=== PATIENT | female | born 1950 | race Caucasian/White ===

== ENCOUNTER 2017-12-06 05:23 | Day surgery (SDC) | payer OTHER, MEDICARE ==
[~2017-12-06] VITALS: Ht 165.1 cm; Wt 80.3 kg
--- NOTE | ~2017-12-06 | O ---
[facility] [place] [address] OPERATIVE REPORT Name: JENNIFER STAHL Room #: 150-4 [facility].#: [id number] Admission: 12/06/17 Attend Phys: Casey Armendariz MD Discharge: Date of : 46 Report #: [id number] THIS REPORT FOR: //name// CC: [facility] physician/PCP Joseluis Armendariz DATE OF SERVICE: 12/06/2017 PATIENT OF: Dr. Casey Armendariz and Dr. Joseluis Hassan. PREOPERATIVE DIAGNOSIS: Right lower quadrant ventral hernia. POSTOPERATIVE DIAGNOSIS: Recurrent right lower quadrant ventral incisional hernia. PROCEDURE: Repair of a recurrent right lower quadrant incarcerated ventral incisional hernia with Prolene hernia system mesh. SURGEON: Casey Armendariz MD ANESTHESIA: Local IV sedation. DESCRIPTION OF PROCEDURE: The patient was brought to the operating room and placed on operative table in the supine position. Sequential compression devices were in place for DVT prophylaxis. There was no indication for preoperative antibiotics. The patient underwent IV sedation. The right lower quadrant and right inguinal area were prepped and draped in a sterile fashion. Skin and subcutaneous tissue around this hernia were infiltrated with 0.5% Marcaine and 1% Xylocaine in a 1:1 mixture. A right lower quadrant incision was performed through her previous Pfannenstiel incision laterally using #10 scalpel blade. Hemostasis obtained using electrocautery. Dissection was carried down through subcutaneous tissue and within the subcutaneous tissue, there was an incarcerated hernia sac, which was dissected free down to the external oblique fascia. This appeared to be extending up through the external oblique fascia laterally. This was reduced back into the preperitoneal space. The external oblique fascia was opened in this area and the preperitoneal space was developed and an extended Prolene hernia system mesh was then inserted through the defect and the underlay patch was then deployed in the preperitoneal space. The connector was left in the defect, which was then closed around the connector using interrupted [id number] #1 Prolene suture including the connector medially and laterally. The overlay patch was then deployed into the area just below the external oblique fascia and secured superiorly, inferiorly, medially and laterally with simple interrupted 2-0 Prolene sutures. The external oblique fascia was then closed using a running 2-0 Prolene suture. Carolyn's fascia was then reapproximated using simple interrupted 2-0 chromic sutures and the skin [address] [address] OPERATIVE REPORT Name: JENNIFER STAHL Room #: 150-4 [facility]..#: [id number] Admission: 12/06/17 Attend Phys: Casey Armendariz MD Discharge: Date of : 46 Report #: [id number] then closed with a running 4-0 subcuticular Vicryl stitch. The wound was then dressed with Mastisol, 1/2-inch Steri-Strips cut in half, Telfa, 4 x 4 gauze, sponge and tape. The patient was then taken to recovery room awake, alert and in good condition. Estimated blood loss was approximately 10 mL and the patient tolerated procedure well. All sponge, lap and instrument counts correct times 2. <ELECTRONICALLY SIGNED> By: Casey Armendariz MD 12/06/17 1359 [id number] [id number] Casey Armendariz MD /nt
--- NOTE | ~2017-12-06 | EKG ---
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
[~2017-12-06 05:23] MED LIST: AMARYL2 MG PO; ASPIRIN325 PO; CALCIUM 600 +1 EAC1 PO; CENTRUM SILVER1 EAC4 PO; LANTUS100 UNIT/M SUBQ; NEURONTIN 300300 M1 PO
[2017-12-06 07:30] VITALS: BP 175/78
[2017-12-06] MEDS ORDERED: NORCO 5-325 TA1 EACH PO (10:59)
[2017-12-06 11:07] VITALS: BP 175/78
== END 2017-12-06 11:45 | disposition home or self-care (01) ==
LOC: TBA 05:23 → OR 05:23
DX: K43.0 Incisional hernia with obstruction, without gangrene (principal); E11.9 Type 2 diabetes mellitus without complications; M19.90 Unspecified osteoarthritis, unspecified site; G47.33 Obstructive sleep apnea (adult) (pediatric); Z90.710 Acquired absence of both cervix and uterus; Z79.4 Long term (current) use of insulin; Z95.1 Presence of aortocoronary bypass graft; Z87.891 Personal history of nicotine dependence; Z85.828 Personal history of other malignant neoplasm of skin; Z79.82 Long term (current) use of aspirin; Z79.899 Other long term (current) drug therapy; Z79.891 Long term (current) use of opiate analgesic
CPT/HCPCS: 50010; 50101; 50386; 50417; 54111; 56524; 56525; 56526; 56528; 62110; 62850; 70005